=== PATIENT | female | born 1995 | race American Indian/Alaskan Native ===

== ENCOUNTER 2017-04-25 02:27 | Emergency (ER) | payer MEDICAID ==
[2017-04-25] MEDS ORDERED: DUONEB *Not for PRN Use IH ONE ×2 (03:07→03:15)
[2017-04-25 03:50] VITALS: BP 178/109
[2017-04-25 04:30] LABS: Mean Corpuscular HGB Conc 33 % (30-34)
[2017-04-25 04:31] LABS: BUN/Creatinine Ratio 16; Blood Urea Nitrogen 8 mg/dL (7-17); Calcium 9.5 mg/dL (8.4-10.2); Hemolysis Index 12
[2017-04-25 04:52] LABS: Eosinophils # (Auto) 2.2 K/mm3 (0.0-0.4); Hematocrit 40.7 % (30.3-42.9); Hemoglobin 13.6 gm/dl (10.1-14.3); Mean Corpuscular Hemoglobin 30 pg (28-32); Mean Corpuscular Volume 91 fl (79-97); Monocytes % (Auto) 4.5 % (0.0-7.3); Platelet Count 387 K/mm3 (140-440); Red Blood Count 4.47 M/mm3 (3.65-5.03); Red Cell Distribution Width 15.7 % (13.2-15.2)
--- NOTE | 2017-04-25 05:08 | XRay Report ---
FINAL REPORT PROCEDURE: XR CHEST ROUTINE 2V TECHNIQUE: PA and lateral chest radiographs were obtained. CPT 13065 HISTORY: Shortness of breath COMPARISON: No prior studies are available for comparison. FINDINGS: Heart: Normal. Mediastinum/Vessels: Normal. Lungs/Pleural space: Normal. Bony thorax: No acute osseous abnormality. Other: IMPRESSION: Normal examination.
[2017-04-25 06:00] LABS: Anisocytosis 1+; Band Neutrophils # (Manual) 0.1 K/mm3; Macrocytosis 1+; Total Cells Counted 100
== END 2017-04-25 08:55 | disposition left against medical advice (07) ==
LOC: ED 02:27
DX: J45.909 Unspecified asthma, uncomplicated (principal); Z53.21 Procedure and treatment not carried out due to patient leaving prior to being seen by health care provider
CPT/HCPCS: 36415; 71046; 80048; 85007; 85025

== ENCOUNTER 2017-05-03 20:29 | Emergency (ER) | payer MEDICAID ==
[2017-05-03] MEDS ORDERED: PROVENTIL IH ONE ×4 (20:33→21:09)
[2017-05-03] MEDS ORDERED: ATROVENT IH ONE ×3 (21:03→21:08)
[2017-05-03] MEDS ORDERED: NACL 0.9% 500 ML 500 ML IV ONE (21:08)
[2017-05-03] MEDS ORDERED: ADRENALINE P/F SUB-Q ONE (21:08)
--- NOTE | 2017-05-03 21:10 | Emergency Department Report ---
ED General Adult HPI - General Chief complaint: Adult Asthma Stated complaint: ANAIS Time Seen by Provider: 05/03/17 21:03 Source: patient, RN notes reviewed Mode of arrival: Ambulatory Limitations: No Limitations - History of Present Illness Initial comments: This is a 21-year-old female. She is previously unknown to me. She endorses a past medical history of asthma, hypertension. Does not have a primary care doctor. Presents to the ER with a complaint of cough, wheezing, shortness of breath. Patient reports she feels like her asthma is acting up. Triggers include cold weather, change of seasons, running out of medications. Patient denies severe headache, chest pain, abdominal pain, leg pain, leg swelling, she also denies DVT and pulmonary embolus risk factors. The patient further reports that she is not . Her symptoms are constant. It did not radiate anywhere. It worsened with physical exertion. It decreased with rest. -: Gradual Consistency: constant Improves with: rest Worsens with: movement Associated Symptoms: cough, malaise, shortness of breath. denies: chest pain, diaphoresis, fever/chills, headaches, loss of appetite, nausea/vomiting, rash, seizure, syncope, weakness - Related Data Previous Rx's Medication Instructions Recorded Last Taken Type Albuterol Sulfate [Albuterol 0.63% 0.63 mg IH Q4HR PRN #2 ml 05/03/17 Unknown Rx NEBS] Albuterol Sulfate [Proair 90 mcg IH Q4HR PRN #2 aer.[email or web address] 05/03/17 Unknown Rx Respiclick] Amlodipine Besylate [Norvasc] 5 mg PO QDAY #30 tablet 05/03/17 Unknown Rx Benzonatate [Tessalon Perles] 100 mg PO Q8HR PRN #30 capsule 05/03/17 Unknown Rx predniSONE [Deltasone] 40 mg PO QDAY #8 tab 05/03/17 Unknown Rx Allergies Allergy/AdvReac Type Severity Reaction Status Date / Time amoxicillin [From Augmentin] Allergy Rash Verified 04/25/17 03:50 clavulanic acid Allergy Rash Verified 04/25/17 03:50 [From Augmentin] ED Review of Systems ROS: Stated complaint: ANAIS Other details as noted in HPI ED Past Medical Hx - Past Medical History Hx Hypertension: Yes Hx Asthma: Yes - Surgical History Additional Surgical History: x1 - Social History Smoking Status: Never Smoker Substance Use Type: None - Medications Home Medications: Home Medications Medication Instructions Recorded Confirmed Last Taken Type Albuterol Sulfate [Albuterol 0.63% 0.63 mg IH Q4HR PRN #2 ml 05/03/17 Unknown Rx NEBS] Albuterol Sulfate [Proair 90 mcg IH Q4HR PRN #2 aer.[email or web address] 05/03/17 Unknown Rx Respiclick] Amlodipine Besylate [Norvasc] 5 mg PO QDAY #30 tablet 05/03/17 Unknown Rx Benzonatate [Tessalon Perles] 100 mg PO Q8HR PRN #30 capsule 05/03/17 Unknown Rx predniSONE [Deltasone] 40 mg PO QDAY #8 tab 05/03/17 Unknown Rx ED Physical Exam - General Limitations: No Limitations General appearance: alert, in distress - Head Head exam: Present: atraumatic, normocephalic - Eye Eye exam: Present: normal appearance, EOMI - ENT ENT exam: Present: normal exam, normal orophraynx, mucous membranes moist - Neck Neck exam: Present: normal inspection, full ROM - Respiratory Respiratory exam: Present: respiratory distress, accessory muscle use. Absent: rales, stridor - Cardiovascular Cardiovascular Exam: Present: normal rhythm, tachycardia, normal heart sounds. Absent: systolic murmur, diastolic murmur, rubs, gallop - GI/Abdominal GI/Abdominal exam: Present: soft, normal bowel sounds. Absent: distended, tenderness, guarding, rebound, rigid, pulsatile mass - Extremities Exam Extremities exam: Present: normal inspection, full ROM, normal capillary refill. Absent: pedal edema, joint swelling, calf tenderness - Back Exam Back exam: Present: normal inspection, full ROM. Absent: tenderness, CVA tenderness (R), paraspinal tenderness, vertebral tenderness - Neurological Exam Neurological exam: Present: alert, oriented X3, CN II-XII intact, other ( Extraocular movements intact. Tongue midline. No facial droop. Facial sensation intact to light touch in the V1, V2, V3 distribution bilaterally. 5 and 5 strength in 4 extremities.. Sensation is intact to light touch in 4 extremities.). Absent: motor sensory deficit - Psychiatric Psychiatric exam: Present: normal affect, normal mood - Skin Skin exam: Present: warm, dry, intact, normal color. Absent: rash ED Course Vital Signs 05/03/17 05/03/17 05/03/17 20:38 21:06 21:08 Temperature 98.4 F Pulse Rate 100 H Pulse Rate [ 105 H Anterior Bilateral Throughout] Respiratory 28 H 22 Rate Respiratory 24 Rate [Anterior Bilateral Throughout] Blood Pressure 173/98 O2 Sat by Pulse 100 100 Oximetry 05/03/17 21:44 Temperature Pulse Rate Pulse Rate [ 108 H Anterior Bilateral Throughout] Respiratory Rate Respiratory 20 Rate [Anterior Bilateral Throughout] Blood Pressure O2 Sat by Pulse Oximetry - Reevaluation(s) Reevaluation #1: 05/03/17 22:12 Differential diagnosis, including but not limited to: Bronchitis, asthma exacerbation, reactive airway disease Assessment and plan: 21-year-old female with clinical asthma exacerbation. No pulmonary embolus or DVT risk factors, low risk by well's criteria. Patient actively wheezing and using abdominal muscles to breathe. Patient will be started on albuterol, Atrovent, steroids, magnesium, and be given subcutaneous epinephrine. Elevated blood pressure is appreciated. Patient not having chest pain or neurologic symptoms. Patient will be reassessed. Reevaluation #2: 05/03/17 22:57 Patient reports that she is feeling much better. She is still tachycardic, I would expect that from a beta rale, and subcutaneous epinephrine. She able to walk and speak in full sentences simultaneously, and she does not desaturate. She is still somewhat hypertensive, this is also likely secondary to the medication noncompliance, as well as patient's epinephrine. Patient reports that she is not and that she has not delivered a given within the past 2 months. Leukocytosis is appreciated, this is most likely secondary to physiologic stress. Patient will be started on alternative blood pressure medication, she reports that she was on labetalol, but given her underlying asthma exacerbation, I do not think the prudent to prescribe a beta dulce. Patient will be discharged with albuterol, antihypertensive medication, cough medication, instructions to follow up with outpatient primary care. She feels much improved ED Medical Decision Making - Lab Data Result diagrams: 05/03/17 22:43 Critical care attestation.: If time is entered above; I have spent that time in minutes in the direct care of this critically ill patient, excluding procedure time. ED Disposition Clinical Impression: Asthma exacerbation, Elevated blood pressure reading Disposition: [id number] TO HOME OR SELFCARE Is pt being admited?: No Does the pt Need Aspirin: No Condition: Stable Instructions: Asthma (ED) Additional Instructions: Take medications as directed. Follow-up with a primary care doctor within the next 2-3 weeks. Avoid consumption of tobacco and smoke related products. Blood pressure is very elevated. This seems to be followed up by primary care doctor as recommended. Long-term complications of hypertension and elevated blood pressure includes stroke, heart attack, disability, paralysis, loss of quality of life. Return to the ER right away with new pain, worsened pain, migration of pain, fevers, chills, lethargy, irritability, projectile vomiting, change in mental status, confusion, inability to tolerate liquid feeds, shortness of breath. Referrals: LEI BAINS MD [Primary Care Provider] - 3-5 Days
[2017-05-03 22:52] LABS: Hemoglobin 12.8 gm/dl (10.1-14.3); Mean Corpuscular HGB Conc 33 % (30-34); Mean Corpuscular Hemoglobin 30 pg (28-32); Mean Corpuscular Volume 92 fl (79-97); Platelet Count 363 K/mm3 (140-440); Red Blood Count 4.26 M/mm3 (3.65-5.03); Red Cell Distribution Width 15.9 % (13.2-15.2)
--- NOTE | 2017-05-03 22:54 | XRay Report ---
FINAL REPORT PROCEDURE: XR CHEST 1V AP TECHNIQUE: Chest radiograph anteroposterior view. CPT 62614 HISTORY: dyspnea COMPARISON: 04/25/2017 FINDINGS: Heart: Normal. Mediastinum/Vessels: Normal. Lungs/Pleural space: Normal. Bony thorax: No acute osseous abnormality. Life support devices: None. IMPRESSION: No acute cardiopulmonary abnormality.
[2017-05-03 23:09] LABS: BUN/Creatinine Ratio 10; Blood Urea Nitrogen 6 mg/dL (7-17); Calcium 8.9 mg/dL (8.4-10.2); Hemolysis Index 7
[2017-05-03 23:11] LABS: INR 0.97 (0.87-1.13)
[2017-05-03] MEDS ORDERED: K-DUR PO ONE (23:25)
[2017-05-04 00:30] VITALS: BP 175/89
== END 2017-05-04 00:31 | disposition home or self-care (01) ==
LOC: ED 20:29
DX: J45.901 Unspecified asthma with (acute) exacerbation (principal); I10 Essential (primary) hypertension; Z88.1 Allergy status to other antibiotic agents; Z88.8 Allergy status to other drugs, medicaments and biological substances
CPT/HCPCS: 36415; 71045; 80048; 84702; 85027; 85610; 94640; 96361; 96372; 96374; 99285; J0171; J2930; J7040

== ENCOUNTER 2017-05-04 05:53 | Emergency (ER) | payer MEDICAID ==
[2017-05-04 06:03] VITALS: BP 181/116
[2017-05-04] MEDS ORDERED: XOPENEX IH ONE (06:40)
[2017-05-04] MEDS ORDERED: NACL 0.9% NEBU ONE (06:42)
== END 2017-05-04 06:56 | disposition left against medical advice (07) ==
LOC: ED 05:53
DX: R06.09 Other forms of dyspnea (principal); Z53.21 Procedure and treatment not carried out due to patient leaving prior to being seen by health care provider